=== PATIENT | male | born 1970 | race Caucasian/White ===

== ENCOUNTER 2017-07-03 21:28 | Inpatient (IN) | payer OTHER ==
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
[2017-07-03] MEDS ORDERED: IOPAMIDOL (ISOVUE-300) 100 ML BTL ONE (21:56)
[2017-07-03] MEDS ORDERED: NS 1,000 ML IV ONE (21:56)
[2017-07-03 22:06] LABS: PLATELET COUNT 351 10^3/uL (150-400)
[2017-07-03] MEDS ORDERED: ENOXAPARIN 100 MG/ML SYR SC ONE (23:45)
[2017-07-04] MEDS ORDERED: ACETAMINOPHEN 325 MG TAB PO PRN (00:26)
[2017-07-04] MEDS ORDERED: LORazepam 0.5 MG TAB PO PRN (00:26)
[2017-07-04] MEDS ORDERED: ONDANSETRON 4 MG/2 ML VIAL IVP PRN (00:26)
[2017-07-04] MEDS ORDERED: HYDROmorphONE/DILAUDID 1 MG/ML INJ IVP PRN (00:26)
[2017-07-04] MEDS: HYDROCODONE/APAP 5/325 TAB PO PRN ×4 (01:30→23:53)
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
[2017-07-04] MEDS: NS 1,000 ML IV SCH (03:23)
[2017-07-04] MEDS: ENOXAPARIN 100 MG/ML SYR SC SCH ×2 (11:27→21:28)
--- NOTE | 2017-07-04 11:39 | HOSPPROG ---
Hospitalist Progress Note Assessment/Plan: Remi is a 46 y/o male who has a hx of a splenectomy and partial liver resection who presented to the ER with abdominal pain and distention. Reviewed his care with Dr Campuzano who admitted the patient earlier today. Appreciate Dr Kirkland seeing him. *portal vein and mesenteric vein thrombosis -cont LMWH -difficult to know if provoked or due to his anatomy/ he is more prone with hx of splenectomy -have asked Dr Kirkland w hematology for guidance in treatment -Indeterminate prominent lymph nodes including in the rosalind hepatis and perirectal region. Follow-up CT abdomen pelvis with IV and oral contrast is recommended in one month. *abdominal pain -due to the above *elevated bilirubin *elevated alk phos -continued monitoring *Scattered tiny pulmonary nodules -with hx of smoking; this needs f/u *Plan: Remi will require > 2 midnight stay to further evaluate, cont to have significant abdominal pain. Shin has requested I update his PCP, Dr Anita Aldana, will let her know of his admission. Subjective: Remi is having ongoing abdominal pain. Appetite is poor due to the pain. Objective: Vital Signs Temp Pulse Resp BP Pulse Ox 37.1 C 68 14 90/63 L 93 07/04/17 08:00 07/04/17 08:00 07/04/17 08:00 07/04/17 08:00 07/04/17 08:00 Laboratory Results 07/04/17 04:42 07/03/17 07/04/17 07/05/17 05:59 05:59 05:59 Intake Total 1525 500 Output Total 1 Balance 1525 499 - Physical Exam Constitutional: uncomfortable Eyes: PERRL Ears, Nose, Mouth, Throat: hearing normal Cardiovascular: regular rate and rhythym Respiratory: no respiratory distress Gastrointestinal: normoactive bowel sounds, tenderness (generalized, vague) Skin: warm Musculoskeletal: full muscle strength Neurologic: AAOx3 Psychiatric: interacting appropriately ICD10 Worksheet Patient Problems: Problems Problem Status Onset Abdominal pain Acute Elevated bilirubin Acute Mesenteric vein thrombosis Acute Portal vein thrombosis Acute
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
[2017-07-04] MEDS: ACYCLOVIR 400 MG TAB PO SCH (21:28)
[2017-07-05] MEDS: NS 1,000 ML IV SCH (04:44)
[2017-07-05] MEDS: HYDROCODONE/APAP 5/325 TAB PO PRN ×2 (04:47→08:57)
[2017-07-05] MEDS: ACYCLOVIR 400 MG TAB PO SCH ×2 (08:58→21:12)
[2017-07-05] MEDS: ENOXAPARIN 100 MG/ML SYR SC SCH ×2 (09:01→21:13)
--- NOTE | 2017-07-05 12:26 | SOAPPROG ---
SOAP Progress Note Assessment/Plan: Assessment: 1. Portal vein, mesenteric thrombosis. Pain under control on norco Plan:Continue anti coag, follow one more day, if stable could consider d/c tomorrow on either lovenox or doac, follow up either here or [place], check lft' s tomorrow 07/05/17 12:23 Subjective: Still some pain, eating Objective: Vital Signs Temp Pulse Resp BP Pulse Ox 98.7 F 81 16 106/72 90 L 07/05/17 11:43 07/05/17 11:43 07/05/17 11:43 07/05/17 11:43 07/05/17 11:43 Laboratory Results 07/04/17 04:42 07/04/17 07/05/17 07/06/17 05:59 05:59 05:59 Intake Total 1525 2350 360 Output Total 1 Balance 1525 2346 360 Physical Exam - Physical Exam General Appearance: no apparent distress Respiratory: normal breath sounds Cardiac/Chest: regular rate, rhythm Abdomen: No non-tender ICD10 Worksheet Patient Problems: Problems Problem Status Onset Abdominal pain Acute Elevated bilirubin Acute Mesenteric vein thrombosis Acute Portal vein thrombosis Acute
--- NOTE | 2017-07-05 12:34 | ASMTCMCOM ---
CM Note CM Note Notes: Patient admitted with abdominal pain/distention. On CT, found to have mesenteric and portal vein thrombosis. Hematology has seen and recommends full-dose anticoagulation. Patient is normally independent and had recently moved to [place]. He will stay in [place] until safe to fly, likely after a follow up appointment with his PCP and/or Dr Kirkland's office. Case Management available for any discharge needs. Date Signed: 07/05/2017 12:34 PM Electronically Signed By:Melisa Morales RN
--- NOTE | 2017-07-05 12:36 | HOSPPROG ---
Hospitalist Progress Note Assessment/Plan: Remi is a 46 y/o male who has a hx of a splenectomy and partial liver resection who presented to the ER with abdominal pain and distention. *portal vein and mesenteric vein thrombosis -cont LMWH -difficult to know if provoked or due to his anatomy/ he is more prone with hx of splenectomy -Indeterminate prominent lymph nodes including in the rosalind hepatis and perirectal region. Follow-up CT abdomen pelvis with IV and oral contrast is recommended in one month. *abdominal pain -due to the above -needing pain meds frequently *elevated bilirubin *elevated alk phos -continued monitoring *Scattered tiny pulmonary nodules -with hx of smoking; this needs f/u *Plan: Dr Kirkland and myself met with the patient, we spent time answering his questions in regards to pain, flying, f/u care. Get repeat labs in a.m. Will give him a script for Lovenox to see if his insurance will cover. He will be living in [place] for while and will be changing insurance. He will need monitoring overnight due to ongoing pain and needing close monitoring. Subjective: Shin is concerned about traveling, pain. Pain is well managed when he stays on the [facility] Objective: Vital Signs Temp Pulse Resp BP Pulse Ox 37.1 C 81 16 106/72 90 L 07/05/17 11:43 07/05/17 11:43 07/05/17 11:43 07/05/17 11:43 07/05/17 11:43 Laboratory Results 07/04/17 04:42 07/04/17 07/05/17 07/06/17 05:59 05:59 05:59 Intake Total 1525 2350 360 Output Total 1 Balance 1525 2349 360 - Physical Exam Constitutional: no apparent distress, appears nourished Eyes: PERRL Ears, Nose, Mouth, Throat: hearing normal Respiratory: no respiratory distress Skin: warm Musculoskeletal: full muscle strength Neurologic: AAOx3 Psychiatric: interacting appropriately ICD10 Worksheet Patient Problems: Problems Problem Status Onset Abdominal pain Acute Elevated bilirubin Acute Mesenteric vein thrombosis Acute Portal vein thrombosis Acute
[2017-07-05] MEDS ORDERED: BISACODYL 10 MG SUPP PR PRN (15:40)
[2017-07-05] MEDS ORDERED: MAGNESIUM HYDROXIDE 30 ML UDCUP PO PRN (15:40)
[2017-07-05] MEDS ORDERED: LACTULOSE 20 GM/30 ML UDCUP PO PRN (15:40)
[2017-07-05] MEDS: POLYETHYLENE GLYCOL 3350 17 GM PKT PO SCH (16:06)
[2017-07-05] MEDS: HYDROCODONE/APAP 10/325 TAB PO PRN ×2 (16:58→23:17)
[2017-07-05] MEDS: SENNOSIDES/DOCUSATE SODIUM TAB PO SCH (21:12)
[2017-07-06 05:34] LABS: PLATELET COUNT 399 10^3/uL (150-400)
[2017-07-06] MEDS: HYDROCODONE/APAP 10/325 TAB PO PRN ×2 (06:36→13:17)
[2017-07-06] MEDS: ENOXAPARIN 100 MG/ML SYR SC SCH (08:37)
[2017-07-06] MEDS: SENNOSIDES/DOCUSATE SODIUM TAB PO SCH (08:37)
[2017-07-06] MEDS: ACYCLOVIR 400 MG TAB PO SCH (08:37)
[2017-07-06] MEDS: POLYETHYLENE GLYCOL 3350 17 GM PKT PO SCH (08:37)
--- NOTE | 2017-07-06 11:03 | HOSPPROG ---
Hospitalist Progress Note Assessment/Plan: Remi is a 46 y/o male who has a hx of a splenectomy and partial liver resection who presented to the ER with abdominal pain and distention. *portal vein and mesenteric vein thrombosis -cont LMWH -difficult to know if provoked or due to his anatomy/ he is more prone with hx of splenectomy -Indeterminate prominent lymph nodes including in the rosalind hepatis and perirectal region. Follow-up CT abdomen pelvis with IV and oral contrast is recommended in one month. 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 -call into his PCP *Scattered tiny pulmonary nodules -with hx of smoking; this needs f/u *Plan: reviewed his care with Dr Aldana, she will f/u with labs, will get blood cx prior to dc due to having a fever recently Subjective: Remi is feeling ok, mainly concerned about f/u care w moving to [facility] Objective: Vital Signs Temp Pulse Resp BP Pulse Ox 36.7 C 69 16 97/66 L 93 07/06/17 07:58 07/06/17 07:58 07/06/17 07:58 07/06/17 07:58 07/06/17 07:58 Laboratory Results 07/06/17 05:10 07/06/17 05:10 07/05/17 07/06/17 07/07/17 05:59 05:59 05:59 Intake Total 2350 2310 Output Total 1 Balance 2349 2310 - Physical Exam Constitutional: no apparent distress, appears nourished, uncomfortable Eyes: PERRL Ears, Nose, Mouth, Throat: hearing normal Cardiovascular: regular rate and rhythym Respiratory: no respiratory distress Gastrointestinal: normoactive bowel sounds Skin: warm Musculoskeletal: full muscle strength Neurologic: AAOx3 Psychiatric: interacting appropriately ICD10 Worksheet Patient Problems: Problems Problem Status Onset Abdominal pain Acute Elevated bilirubin Acute Mesenteric vein thrombosis Acute Portal vein thrombosis Acute
[2017-07-06 11:22] VITALS: BP 111/67
[2017-07-06 11:50] LABS: HEPATITIS B SURFACE ANTIGEN NEGATIVE (NEGATIVE)
[2017-07-06 11:56] LABS: HEPATITIS A ANTIBODY IGM (BCH) NEGATIVE (NEGATIVE); HEPATITIS B CORE AB IGM NEGATIVE (NEGATIVE)
[2017-07-06 12:08] LABS: HEPATITIS C ANTIBODY TOTAL NEGATIVE (NEGATIVE)
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
--- NOTE | 2017-07-06 16:08 | ASMTCMCOM ---
CM Note CM Note Notes: Pt medically stable for d/c, no CM d/c needs identified. Date Signed: 07/06/2017 04:07 PM Electronically Signed By:MARCIO Mckeon
== END 2017-07-06 14:17 | disposition home or self-care (01) | DRG 443 ==
LOC: OBSVTOIN 23:39 → F3N 07-04 00:57
PROVIDERS: ADMIT Family Medicine; ATTEND Internal Medicine
DX: I81 Portal vein thrombosis (principal); R10.12 Left upper quadrant pain; R74.8 Abnormal levels of other serum enzymes; E80.7 Disorder of bilirubin metabolism, unspecified; R59.1 Generalized enlarged lymph nodes; R91.1 Solitary pulmonary nodule; R50.9 Fever, unspecified; D56.3 Thalassemia minor; E86.9 Volume depletion, unspecified; F17.210 Nicotine dependence, cigarettes, uncomplicated; V89.9XXS Person injured in unspecified vehicle accident, sequela; Z90.81 Acquired absence of spleen; Z90.49 Acquired absence of other specified parts of digestive tract
CPT/HCPCS: 81439-90; 85303-90; 85306-90; 85613-90; 86147-90; G0472; J1650; Q9967